=== PATIENT | female | born 1950 | race Caucasian/White ===

== ENCOUNTER → 2024-01-07 | Outpatient (CLI) | payer BC, MEDICARE ==
[~2024-01-07] MED LIST: BOSWELLIA PO; CITRTAB15 PO; COUM2.5T17 PO; IBUP200C25 PO; IBUPOTC PO; ISOVUE-370 76% 100ML VIAL As Ordered ONE; LORA-243 PO; NORT25CA2 PO; PANT20TA6 PO; PERC5TAB12 PO; SUMA100T2 PO
== END ==
LOC: M RAD 09:29
PROVIDERS: ATTEND Internal Medicine Nephrology
DX: D41.01 Neoplasm of uncertain behavior of right kidney (principal)
CPT/HCPCS: 74177; Q9967